=== PATIENT | female | born 1970 | race Native Hawaiian/Other Pacific Islander ===

== ENCOUNTER 2018-06-01 17:14 | Emergency (ER) | payer OTHER ==
[~2018-06-01] VITALS: Ht 170.2 cm; Wt 76.2 kg
[~2018-06-01 17:14] MED LIST: METO25TA4 PO
[2018-06-01] MEDS ORDERED: AMLO2.5T PO (17:43)
[2018-06-01 18:38] LABS: PLATELET COUNT 316 K/uL (152-353)
[2018-06-01 18:45] LABS: POTASSIUM 3.7 mmol/L (3.6-5.2)
[2018-06-01 21:52] VITALS: BP 160/89; TEMP 98
== END 2018-06-01 22:04 | disposition home or self-care (01) ==
LOC: ED 17:14
PROVIDERS: Family Medicine
DX: S16.1XXA Strain of muscle, fascia and tendon at neck level, initial encounter (principal); S20.212A Contusion of left front wall of thorax, initial encounter; S20.211A Contusion of right front wall of thorax, initial encounter; S30.1XXA Contusion of abdominal wall, initial encounter; V89.2XXA Person injured in unspecified motor-vehicle accident, traffic, initial encounter
CPT/HCPCS: 36415; 80053; 85027; 96374; 99284; J1885; Q9963